=== PATIENT | female | born 1975 | race Caucasian/White ===

== ENCOUNTER → 2018-09-21 | Outpatient (CLI) | payer OTHER ==
[~2018-09-21] MED LIST: SPRINTEC1 EACH; VICODIN 5-5001 EACH PO
== END ==
LOC: M.RAD 07:18
DX: Z12.31 Encounter for screening mammogram for malignant neoplasm of breast (principal)

== ENCOUNTER → 2019-09-21 | Outpatient (CLI) | payer OTHER | LOC: M.RAD 07:00 | DX: Z12.31 Encounter for screening mammogram for malignant neoplasm of breast (principal) ==

== ENCOUNTER → 2020-03-22 | Outpatient (CLI) | payer OTHER | LOC: M.RAD 08:38 | PROVIDERS: ATTEND Student in an Organized Health Care Education/Training Program | DX: N63.15 Unspecified lump in the right breast, overlapping quadrants (principal) ==

== ENCOUNTER → 2020-09-12 | Outpatient (CLI) | payer OTHER | LOC: M.RAD 07:25 | PROVIDERS: ATTEND Student in an Organized Health Care Education/Training Program | DX: Z12.31 Encounter for screening mammogram for malignant neoplasm of breast (principal) ==

== ENCOUNTER → 2021-07-18 | Outpatient (CLI) | payer OTHER | LOC: M.ULTRA 12:48 | PROVIDERS: ATTEND Nurse Practitioner Family | DX: D25.9 Leiomyoma of uterus, unspecified (principal); N83.291 Other ovarian cyst, right side; N93.9 Abnormal uterine and vaginal bleeding, unspecified ==

== ENCOUNTER → 2021-09-20 | Outpatient (CLI) | payer OTHER | LOC: M.RAD 06:50 | PROVIDERS: ATTEND Nurse Practitioner Family | DX: Z12.31 Encounter for screening mammogram for malignant neoplasm of breast (principal) ==